=== PATIENT | female | born 1950 | race Caucasian/White ===

== ENCOUNTER → 2016-12-30 | Outpatient (CLI) | payer MEDICARE, BC, OTHER ==
[~2016-12-30] MED LIST: /GLIP10TAB OR; /LAMO10TA OR; /LAMO20TA OR; /LAMO20TA PO; /ROPI1TA OR; ACET65TA OR; ALPR0.5T3 OR; AMBI5TAB OR; ASPI81TA3 OR; ASPI81TA31 OR; AZIL1TAB PO; AZILECT PO; CALC1TAB30 PO; CALCCHW12 OR; CIPRO PO; COLA100C2 OR; COLA50CA OR; COUM2.5T17 PO; E-Z-PAQUE 96% w/w SUSP 176GM BTL As Ordered ONE; FERR325T OR; FLUDROCORTISONE PO; GLUC500T OR; KEPPRA OR; LAMI25TA OR; LIPI20TA OR; LISI5TAB OR; MACR50CA OR; MAGN500T2 OR; METF-699 PO; METF500T4 OR; MIDO2.5T PO; MIRA0.254 PO; NITR100C39 PO; REQU2TAB3 OR; REQUIP XL PO; RYTA1CAP3 PO; SINE25TA2 OR; SINE25TA2 PO; VARIBAR NECTAR 40% w/v 240ML SUSP BTL As Ordered ONE; VARIBAR PUDDING 40% w/v 230ML TUBE As Ordered ONE; VITA1CAP40 PO; VITAMIN D2 PO; VITMTA PO; XANA0.5T OR; XANA0.5T PO; [UNRECOGNIZED DRUG - CODE] OR; [UNRECOGNIZED DRUG - OTHER] OR; [UNRECOGNIZED DRUG - OTHER] PO
--- NOTE | 2016-12-30 12:27 | REP ---
COOKIE SWALLOW: The procedure was performed by LOVE Amin, under the direct supervision of Dr. Peters. The procedure was attended by Susan Gomez from speech pathology. The patient was able to ingest liquid barium in various consistencies. These consistent of thin, puree, mixed and solid. No aspiration or penetration was seen on any of the swallowing passes. Full evaluation from speech pathology to follow. Fluoroscopy time of 2 minutes and 16 seconds. Reviewed by LOVE Duque 12/30/2016 12:54 PEdited and Signed by Keon Peters MD 12/30/2016 08:01 P
== END ==
LOC: M RAD 11:14
PROVIDERS: ATTEND Student in an Organized Health Care Education/Training Program
DX: R13.10 Dysphagia, unspecified (principal)
CPT/HCPCS: 74230; 92611; G8996; G8997; G8998

== ENCOUNTER 2018-08-11 16:22 | Emergency (ER) | payer MEDICARE, BC, OTHER ==
[~2018-08-11] VITALS: Ht 160 cm; Wt 69.9 kg
[~2018-08-11 16:22] MED LIST changes: -/LAMO10TA OR; -/LAMO20TA OR; -/LAMO20TA PO; -/ROPI1TA OR; -E-Z-PAQUE 96% w/w SUSP 176GM BTL As Ordered ONE; +LAMI1TAB7 OR; +LAMI1TAB9 OR; +LAMI1TAB9 PO; +REQU1TAB16 OR; -VARIBAR NECTAR 40% w/v 240ML SUSP BTL As Ordered ONE; -VARIBAR PUDDING 40% w/v 230ML TUBE As Ordered ONE; -VITA1CAP40 PO; +VITA50005 PO
[2018-08-11] MEDS ORDERED: EPINEPHrine 1MG/10ML SYRINGE 1.5IN IV STA ×2 (16:23→16:25)
[2018-08-11] MEDS ORDERED: SODIUM BICARBONATE 4.2% INJ 10 ML SYRINGE ONE (16:23)
[2018-08-11] MEDS ORDERED: SODIUM BICARBONATE 8.4% INJ 50 ML SYRINGE IV STA (16:24)
[2018-08-11] MEDS ORDERED: ATROPINE SULF 1MG/10ML SYRINGE (J0461) IV STA (16:26)
[2018-08-11] MEDS ORDERED: NS 1,000 ML IV ONE (16:30)
[2018-08-11] MEDS ORDERED: NOREPINEPHRINE 4 MG/4 ML AMP As Ordered ONE (16:33)
[2018-08-11] MEDS ORDERED: NOREPINEPHRINE BITARTRATE 8 MG in D5W 492 ML IV SCH (16:45)
[2018-08-11 16:56] LABS: HEMATOCRIT 25.8 % (36.0-47.0); MEAN CORPUSCULAR HEMOGLOBIN 28.7 pg (27.0-33.0); MEAN CORPUSCULAR HGB CONC 27.1 g/dl (32.0-36.5); MEAN CORPUSCULAR VOLUME 105.7 fl (80.0-96.0); PLATELET COUNT, AUTOMATED 211 10^3/uL (150-450); RED BLOOD COUNT 2.44 10^6/uL (4.00-5.40)
[2018-08-11 16:57] LABS: WHITE BLOOD COUNT 15.5 10^3/uL (4.0-10.0)
--- NOTE | 2018-08-11 17:12 | REP ---
Portable chest x-ray: Single view. History: Sepsis, shock. Comparison chest x-ray: August 09, 2015. Findings: Endotracheal tube has been passed into the right mainstem bronchus. This should be withdrawn 4-5 cm. The left lung is almost completely opaque in atelectatic. There is also atelectasis in the right upper lobe. Mild gaseous distension of the stomach is seen. EKG electrodes are noted. Impression: Right mainstem bronchial intubation. Atelectasis right upper lobe and atelectasis in the entire left lung. ET tube should be withdrawn approximately 5 cm. Electronically Signed by Skyler Cunningham MD 08/11/2018 05:04 P
[2018-08-11 17:17] LABS: ALT/SGPT 50 U/L (12-78); BLOOD UREA NITROGEN 24 MG/DL (7-18); CALCIUM LEVEL 7.4 MG/DL (8.8-10.2); CARBON DIOXIDE LEVEL 19 MEQ/L (21-32); CHLORIDE LEVEL 113 MEQ/L (98-107); CPK CREATINE PHOSPHOKINASE 114 U/L (26-192); CREATININE FOR GFR 1.41 MG/DL (0.55-1.30); GLOMERULAR FILTRATION RATE 39.4 (>45); GLUCOSE, FASTING 373 MG/DL (70-100); MB/CK RELATIVE INDEX 1.23 (< OR =4); POTASSIUM SERUM 4.7 MEQ/L (3.5-5.1); SODIUM LEVEL 147 MEQ/L (136-145)
[2018-08-11 17:18] LABS: ALBUMIN 2.3 GM/DL (3.2-5.2); AMYLASE 82 U/L (25-115); BILIRUBIN,DIRECT < 0.1 MG/DL (0.0-0.2); BILIRUBIN,TOTAL 0.2 MG/DL (0.2-1.0); C REACTIVE PROTEIN QUANTITATIV 0.38 MG/DL (0.00-0.30); TOTAL PROTEIN 4.1 GM/DL (6.4-8.2); TROPONIN I 0.08 NG/ML (< 0.10)
--- NOTE | 2018-08-11 17:22 | REP ---
Portable chest x-ray: Single view. 04:55 p.m. film. History: Post intubation. Comparison is made with the 04:52 p.m. film same date. Findings: Endotracheal tube is seen in good position at the level of the transverse aorta. There is improved aeration in the left lung and right upper lobe but persistent alveolar opacity consistent with edema is seen throughout the left lung and in the right upper lobe. Air-Bronchograms are seen on the left. Mild gaseous distension of the stomach persists. Heart is not enlarged. Electronically Signed by Skyler Cunningham MD 08/11/2018 05:13 P
[2018-08-11 17:27] LABS: ABG BASE EXCESS -20.5 (-2.0-2.0); ABG HCO3 11.5 MEQ/L (22.0-26.0); ABG O2 SATURATION 93.7 % (95.0-99.0); ABG PARTIAL PRESSURE O2 112.8 mmHg (75.0-100.0); ABG STANDARD HCO3 8.9 MEQ/L (22.0-26.0); ABG TOTAL CO2 13.3 MEQ/L (23.0-31.0)
[2018-08-11 17:29] LABS: ABG pH (ARTERIAL) 6.906 UNITS (7.350-7.450)
[2018-08-11 17:32] LABS: ATYPICAL LYMPH 3 % (0-5); LYMPHOCYTES 80 % (16-52); METAMYELOCYTES 2 % (0-0); NEUTROPHILS 13 % (35-75)
[2018-08-11 17:33] LABS: PLATELET CLUMPS SMALL AMT; PLATELET ESTIMATE NORMAL (NORMAL)
[2018-08-11 17:35] LABS: BURR CELLS 1+
[2018-08-11 17:51] LABS: INR 1.41; PROTHROMBIN TIME 17.5 SECONDS (12.1-14.4)
[2018-08-11 17:52] LABS: PARTIAL THROMBOPLASTIN TIME 64.4 SECONDS (25.4-37.6)
--- NOTE | 2018-08-11 18:12 | REP ---
Portable chest x-ray: Single view. 04:52 p.m. film. History: Tube placement. Comparison study: 04:43 p.m. film same date. Findings: The endotracheal tube has been withdrawn to the level of the mikaela , 1.3 cm above the origin of the right mainstem bronchus. There is improved aeration of the left lung although it remains opaque with multiple air bronchograms. Opacity persists in the right upper lobe as well. Gastric distension is again observed. EKG electrodes are seen. Impression: Endotracheal tube is seen just above the mikaela near the origin of the right mainstem bronchus. Improved aeration left lung. Electronically Signed by Skyler Cunningham MD 08/11/2018 08:09 P
--- NOTE | 2018-08-11 18:13 | REP ---
CT brain without contrast: History: Status post arrest. Comparison head CT study February 11, 2012. CT findings: Digital lateral furniture decals inspector view demonstrates that the patient is edentulous. An orotracheal tube is seen. Bone window settings demonstrate no bony destructive lesion. On soft tissue window settings, there is loss of ortega-white differentiation pattern throughout the supratentorial brain. This is consistent with significant anoxic encephalopathy. It is a change from the 2012 prior study. There is evidence of mild diffuse cerebral atrophy. Some small vessel changes are noted in the periventricular white matter of the left frontal lobe. There is no evidence of intracranial hemorrhage. No abnormal fluid collection. Impression: Loss of ortega-white differentiation pattern in the supratentorial brain suspicious for significant anoxic encephalopathy. No evidence of hemorrhage or extra-axial fluid collection. Electronically Signed by Skyler Cunningham MD 08/11/2018 08:09 P
[2018-08-11] MEDS ORDERED: COUM2.5T17 PO (18:48)
[2018-08-11] MEDS ORDERED: METF500T13 PO (18:48)
[2018-08-11] MEDS ORDERED: NITR50CA34 PO (18:48)
--- NOTE | 2018-08-11 19:26 | ECGEPIP ---
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
[2018-08-11] MEDS ORDERED: NS 500 ML IV ONE (19:30)
[2018-08-11 20:36] VITALS: BP 40/62
--- NOTE | 2018-08-12 01:22 | IPN ---
DATE: 08/11/2018 NOTE: Called and asked by Dr. Sampson to evaluate Ms. Cantrell given her out of hospital cardiac arrest. Ms. Cantrell is a 67-year-old white female who has a past medical history significant for Parkinson's disease and diabetes mellitus, who was in her usual state of health today. Her usual state of health consists of being wheelchair bound since 2016 and having dysphagia. She is able to talk at baseline, at times difficult to understand. She is not suppose to eat solid food and her has told her not to eat any solid food when she is not with him. Apparently, he was not in the room and she was eating shredded ham. She carries a covered cup with her all day long and he heard the cup drop. He went into the room and he saw her leaning back in her chair. Initially, I believe, he felt that she had fallen asleep and he thought she was breathing, but she was making some upper airway noises. He was concerned that there was food there; so he was able to get her on the floor, did a finger sweep and removed a small piece of ham. He stated she was breathing and he thought that she would wake up. He is not certain of the time, perhaps 4 to 5 minutes. He went to roll her, I believe, on her back to stimulate her to wake up. At that time, she stopped breathing. He then summoned 911 and I believe he started cardiopulmonary resuscitation (CPR). The report I have is that when Emergency Medical Service (EMS) arrived she was between asystole and pulseless electrical activity (PEA). She had received C-reactive protein (CRP) and multiple rounds of medication. She was in pulseless electrical activity (PEA) when she arrived in the emergency department. She continued to receive cardiopulmonary resuscitation (CPR) and medications. At the time that the code was going to be called, she developed sinus tachycardia with a pulse. Retrospectively, all of the resuscitation efforts have been around an hour. Unfortunately, she was fixed and dilated at that time. She was placed on a ventilator, but did not trigger above this level. Her initial labs included a lactic acid of 12.8. An arterial blood gas (ABG) with a pH of 6.91 and a base access of minus of 20.5. Because of the length of the code and the markedly abnormal laboratory values, a head CT scan was obtained, which showed a loss of ortega/white differentiating pattern throughout the supratentorial brain consistent with significant anoxic encephalopathy. When I arrived, she was not triggering the ventilator and her pupils were fixed and dilated and she was on 23 mcg of Levophed with a MAP in the low 60s. I had discussions with her , as well as with 12 of her 14 children and their significant others or spouses. There is a son in [place] and there was a disabled daughter at home. I presented the data outlined above and discussed with them that this was a catastrophic event. We discussed options which included withdrawing care, continuation with vasopressors, but making her a DO NOT RESUSCITATE versus continuing as a full code. I discussed with them that this was almost certainly not a survivable process. I also discussed with them that even going full code I did not feel that she would survive, even doing everything, including repeating a code, I did not feel she would survive for a significant period of time. Her said that he felt he could speak for the family and that she would be a DO NOT RESUSCITATE. The family members were in attendance and were in agreement and she was made a DO NOT RESUSCITATE. This was conveyed to the emergency department physician, Dr. Kalpana Sampson. After they had discussions amongst themselves, I went back and they had made a decision that they wanted to bring the disabled daughter in from home and then move to [facility]. I spoke to the emergency department physician, who is now Dr. Longo, as to whether we should admit her or have her wait in the emergency department (ED) as this was a terminal process. It was felt reasonable to keep her where she was, as there is risks in transporting her and care would not be continued and therefore, she will stay downstairs in the emergency department until her daughter arrives and then they will support. If that were to change, I would be more than happy to admit her. Total time: 50 minutes.
--- NOTE | 2018-08-12 17:09 | ECGEPIP ---
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
== END 2018-08-11 22:55 | disposition expired ==
LOC: M ED 16:22
DX: I46.9 Cardiac arrest, cause unspecified (principal); R13.10 Dysphagia, unspecified; G93.1 Anoxic brain damage, not elsewhere classified; J81.0 Acute pulmonary edema; R00.0 Tachycardia, unspecified; I44.7 Left bundle-branch block, unspecified; I45.10 Unspecified right bundle-branch block; E11.9 Type 2 diabetes mellitus without complications; G20 Parkinson's disease; Z79.899 Other long term (current) drug therapy; Z79.01 Long term (current) use of anticoagulants; Z99.3 Dependence on wheelchair
CPT/HCPCS: 31500; 36415; 51702; 70450; 71045; 80048; 80076; 82150; 82550; 82553; 82803; 83605; 84484; 85025; 85610; 85730; 86140; 86850; 86900; 86901; 87040; 92950; 93005; 93041; 94760; 96361; 96374; 96375; 96376; 99291; J0461

== ENCOUNTER → 2018-08-14 | Outpatient (REF) ==
[~2018-08-14] MED LIST changes: +METF500T13 PO; +NITR50CA34 PO
== END ==
LOC: M LAB 13:47